=== PATIENT | male | born 1955 | race Caucasian/White ===

== ENCOUNTER 2022-09-09 11:33 | Inpatient (IN) ==
[2022-09-09] MEDS ORDERED: SODIUM CHLORIDE 0.9% 1000ML 1,000 ML IV ONE (11:44)
--- NOTE | 2022-09-09 11:47 | Emergency Department Note ---
Impression & Plan Bilateral pulmonary embolism, Pulmonary infarction ED Provider Note Name: KEITH SMITH Age: 67 Sex: M Arrives Via: Walk-In Informant: Patient, ED Provider: David Solorzano MD Chief Complaint: shortness of breath Impression: As per impressions above Medical Decision Making: Pleasant 67-year-old healthy male with a previous history of BPH and recent left rotator cuff surgery 2 weeks ago and has been in a shoulder immobilizer since then. Patient arrives with 24 hours rapidly worsening shortness of breath, right lower posterior chest pain and dyspnea. Significantly worse with exertion. On exam patient is mildly dyspneic with O2 sats in the low 90s. He was immediately ordered a CTA of his chest for PE eval. IV was established and given IV fluids in route to CT. BP GERD and not significantly tachycardic and only mildly low O2, thus no indication for empiric thrombolytics. CT does reveal extensive bilateral PEs with right lower lobe pulmonary infarct. There is no evidence of right heart strain. EKG looks similar to previous. Initial labs with normal troponin and otherwise unremarkable electrolytes. Patient without significant swelling of lower legs or calf thus will defer if need for ultrasound imaging to hospitalist. Patient without any headache or neck pain and denies any recent head injury. He has no abdominal pain epigastric pain or history of gastric ulcers or GI bleed. He denies any rectal bleeding. Discussed risks of heparin and benefits and they are comfortable with proceeding with IV heparin. He was given heparin with bolus and then drip following this. Given the fact patient has clear etiology of PEs with recent surgery I suspect this is a provoked PE and thus I do not feel that extensive hypercoagulable work-up is necessary. Of note patient has no history of PE DVT and previously has done extensive travel and flights without previously ever having issues with clotting. Prior Medical Record and Triage/Nursing Notes reviewed by Me External chart reviewed by me Differentials:PE, dissection, ACS, pneumonia, pneumothorax, sepsis amongst other pathologies considered Vital Signs: reviewed and remarkable for mildly low O2 sats heart rate in the 90s Interventions: 1 L normal saline IV, patient declines pain medications, heparin IV Labs:Reviewed and remarkable for no significant abnormalities Imaging:CT PE study of the chest as per my informal interpretation reveals multiple bilateral PEs with right lower lobe infarct. This was confirmed by radiologist EKG: As per myinterpretation. Indication shortness of breath. Normal sinus rhythm at 87 bpm and an incomplete right bundle branch block. When compared to an EKG of August 25, 2022 this is similar. He does have a QTc of 435. Cardiac/Tele Monitoring: Cardiac Monitoring: An Order was placed for continuous cardiac monitoring. The monitor shows a rate of [] with a [normal sinus] rhythm. Consults:Kena tyist Plan: Disposition:Hospitalization. Condition: Good History of Present Illness:67-year-old gentleman arrives for evaluation of right posterior chest and back pain. Patient notes 2 days rapidly worsening pain. Associated with shortness of breath and severe exertional dyspnea. Pain is worse with deep inspiration. He feels slightly lightheaded. Notes he is unable to walk without significant dyspnea this morning. No medications prior to arrival. Nothing makes better or worse. Patient notes that he had left shoulder surgery 1-1/2 weeks ago. He has been in a shoulder immobilizer since then. He was traveling about 1 month ago. Denies any leg swelling, calf pain, previous DVT/PE, family history of DVT or PE. Denies any syncope, abdominal pain, concerning signs or symptoms. Past History:BPH Home Medications:Tamsulosin Allergies:No known drug Vitals:Blood Pressure: 150/80, Pulse 97, RR 20, T 37.C, O2 94% on RA Physical Exam: GENERAL: Patient is very uncomfortable appearing and in moderate distress. Declines pain medications EYES: No scleral icterus, unremarkable pupils. ENT: Mucous membranes moist, no nasal congestion. RESPIRATORY: Appears dyspneic without significant tachypnea. Clear lung sounds throughout CARDIOVASCULAR: Regular rate and rhythm.No murmurs, rubs, gallops appreciated. GASTROINTESTINAL: Abdomen soft, non-tender, no peritonitis. BACK: No midline tenderness, no CVA tenderness EXTREMITIES: Normal motion right arm and bilateral legs. No edema noted. Left arm is in shoulder immobilizer good distal sensation no swelling of left hand. NEUROLOGIC: Alert and oriented, no focal neurologic deficit appreciated SKIN: No rash, no jaundice, no diaphoresis. PSYCH: Appropriate GCS: 15 ED Course: Times/Reassessments: Patient is breathing comfortably O2 sats in the low 90s but appears less dyspneic after laying in bed and not exerting self. Critical Care: I have personally spent 35 minutes of critical care time in the direct management of this patient. Acute bilateral symptomatic PEs with pulmonary infarct requiring IV heparin. This was a life/limb threatening event. This 35 minutes is in excess of all separately billable procedures. David Solorzano MD Past Med/Surg History Medical History (Updated 09/10/22 @ 08:30 by David Solorzano MD) Actinic keratosis Atypical small acinar proliferation of prostate Elevated PSA Surgical History (Updated 09/09/22 @ 13:30 by Shell Robles PA-C) H/O shoulder surgery S/P inguinal hernia repair S/P tonsillectomy Status post vasectomy Family History Other COPD (chronic obstructive pulmonary disease) Heart disease No significant family history Social History (Updated 09/09/22 @ 13:30 by Shell Robles PA-C) Smoking Status: Former smoker Hx Alcohol Use: Yes Alcohol type: beer and hard liquor Alcohol Intake Frequency: 4 or More x per/Week Alcohol Intake Frequency Comment: 2 drinks/night Hx Substance Use: No Preferred Language: [place] Insurance Premium Auditor Required: No Beliefs That Will Affect Care: None Current Living Situation: Spouse Other Information That Helps Us Care for You: No Feels Safe at Home: Yes Safety Concerns: Feels Safe At This Time Assistive Devices: Glasses and Other Allergies Allergies Allergy/AdvReac Type Severity Reaction Status Date / Time No Known Allergies Allergy Verified 09/09/22 14:01 Home Meds Home Medications Medication Instructions Recorded Confirmed acetaminophen 500 mg tablet 500 mg PO Q6H PRN Pain 09/09/22 09/09/22 glucosamine sulfate 750 mg tablet 750 mg PO BID 09/09/22 09/09/22 ibuprofen 200 mg tablet 200 mg PO Q6H PRN Pain 09/09/22 09/09/22 Previous Rx's Medication Instructions Recorded silodosin 8 mg capsule (Rapaflo) 8 mg PO DAILY #30 caps 04/26/22 Results & Data (ED) Vital Signs Vital Signs - 24 hr 09/09/22 11:36 09/09/22 11:49 09/09/22 12:02 Temperature 37.1 C Temperature Source Temporal Artery Scan Pulse Rate 97 H 86 Pulse Rate from SpO2 Sensor Respiratory Rate 20 Respiratory Effort / Characteristics Spontaneous Short of Breath Respiratory Depth Normal Blood Pressure 150/80 H Blood Pressure Mean 103 Pulse Oximetry 94 Oxygen Delivery Method Room Air Room Air Sepsis New/Unexplained Change in Mental Status N/A Sepsis Action Taken by Nursing No Action Required 09/09/22 12:02 09/09/22 12:10 09/09/22 12:24 Temperature Temperature Source Pulse Rate 86 84 87 Pulse Rate from SpO2 Sensor 87 84 86 Respiratory Rate 22 18 18 Respiratory Effort / Characteristics Respiratory Depth Blood Pressure Blood Pressure Mean Pulse Oximetry 96 92 93 Oxygen Delivery Method Room Air Room Air Room Air Sepsis New/Unexplained Change in Mental Status Sepsis Action Taken by Nursing 09/09/22 12:30 09/09/22 12:30 09/09/22 12:40 Temperature Temperature Source Pulse Rate 86 80 Pulse Rate from SpO2 Sensor 84 79 Respiratory Rate 22 26 H Respiratory Effort / Characteristics Respiratory Depth Blood Pressure 132/82 Blood Pressure Mean 98 Pulse Oximetry 92 Oxygen Delivery Method Room Air Room Air Room Air Sepsis New/Unexplained Change in Mental Status Sepsis Action Taken by Nursing 09/09/22 12:50 09/09/22 13:00 09/09/22 13:01 Temperature Temperature Source Pulse Rate 77 77 75 Pulse Rate from SpO2 Sensor 77 78 75 Respiratory Rate 24 21 23 Respiratory Effort / Characteristics Respiratory Depth Blood Pressure Blood Pressure Mean Pulse Oximetry 94 95 94 Oxygen Delivery Method Room Air Room Air Room Air Sepsis New/Unexplained Change in Mental Status Sepsis Action Taken by Nursing 09/09/22 13:01 09/09/22 13:10 09/09/22 13:20 Temperature Temperature Source Pulse Rate 76 80 Pulse Rate from SpO2 Sensor 76 80 Respiratory Rate 24 21 Respiratory Effort / Characteristics Respiratory Depth Blood Pressure 141/80 H Blood Pressure Mean 100 Pulse Oximetry 94 93 Oxygen Delivery Method Room Air Room Air Room Air Sepsis New/Unexplained Change in Mental Status Sepsis Action Taken by Nursing 09/09/22 13:30 09/09/22 13:30 Temperature Temperature Source Pulse Rate 85 Pulse Rate from SpO2 Sensor Respiratory Rate 21 Respiratory Effort / Characteristics Respiratory Depth Blood Pressure 132/92 Blood Pressure Mean 105 Pulse Oximetry Oxygen Delivery Method Room Air Room Air Sepsis New/Unexplained Change in Mental Status Sepsis Action Taken by Nursing Laboratory Data 09/10/22 03:32 09/10/22 03:32 Lab Results 09/09/22 09/09/22 09/09/22 Range/Units 12:00 12:00 12:00 WBC 10.46 (4.8-10.8) K/ul RBC 5.02 (4.70-6.10) M/uL Hgb 14.8 (14.0-18.0) g/dl Hct 43.6 (42.0-52.0) % MCV 86.9 (80.0-100.0) fL MCH 29.5 (25.0-34.0) pg MCHC 33.9 (32.0-36.0) g/dL RDW Std Deviation 44.9 (36.4-46.3) fL RDW Coeff of Kumar 14.2 (11.5-14.5) % Plt Count 299 (130-400) K/uL MPV 10.0 (9.4-12.4) fL Immature Gran % (Auto) 0.4 % Neut % (Auto) 77.1 % Lymph % (Auto) 8.7 % [place] % (Auto) 9.5 % Eos % (Auto) 3.9 % Baso % (Auto) 0.4 % Neut # (Auto) 8.07 H (1.40-6.50) K/uL Lymph # (Auto) 0.91 L (1.2-3.4) K/uL [place] # (Auto) 0.99 H (0.11-0.59) K/uL Eos # (Auto) 0.41 (0-0.50) K/uL Baso # (Auto) 0.04 (0-0.2) K/uL Immature Gran # (Auto) 0.04 (0.01-0.20) K/uL PT 10.9 (9.0-12.0) Seconds INR 1.0 (0.9-1.1) APTT (21.0-31.0) Seconds PTT Ratio Sodium 140 (136-145) mmol/L Potassium 4.3 (3.5-5.1) mmol/L Chloride 106 (98-107) mmol/L Carbon Dioxide 30 (21-32) mmol/L Anion Gap 4 (3-11) BUN 21 (6-23) mg/dl Creatinine 0.94 (0.6-1.4) mg/dl Est Cr Clr Drug Dosing 87.2 ml/min Est GFR ( Amer) 98.2 ml/min Est GFR (Non-Af Amer) 84.7 ml/min BUN/Creatinine Ratio 22.3 H (10-20) Glucose 87 (70-99(Fasting)) mg/dl Calcium 8.9 (8.6-10.3) mg/dl Magnesium 2.0 (1.7-2.4) mg/dl Total Bilirubin 0.5 (0.2-1.0) mg/dl Direct Bilirubin 0.1 (0-0.2) mg/dl AST 12 L (13-39) U/L ALT 13 (7-52) U/L Alkaline Phosphatase 70 (34-104) U/L Troponin I High Sens 6.6 (0-20) pg/ml Total Protein 7.0 (6.0-8.3) gm/dl Albumin 4.2 (3.4-5.0) gm/dl Lipase 19 (11-82) U/L 09/09/22 Range/Units 12:00 WBC (4.8-10.8) K/ul RBC (4.70-6.10) M/uL Hgb (14.0-18.0) g/dl Hct (42.0-52.0) % MCV (80.0-100.0) fL MCH (25.0-34.0) pg MCHC (32.0-36.0) g/dL RDW Std Deviation (36.4-46.3) fL RDW Coeff of Kumar (11.5-14.5) % Plt Count (130-400) K/uL MPV (9.4-12.4) fL Immature Gran % (Auto) % Neut % (Auto) % Lymph % (Auto) % [place] % (Auto) % Eos % (Auto) % Baso % (Auto) % Neut # (Auto) (1.40-6.50) K/uL Lymph # (Auto) (1.2-3.4) K/uL [place] # (Auto) (0.11-0.59) K/uL Eos # (Auto) (0-0.50) K/uL Baso # (Auto) (0-0.2) K/uL Immature Gran # (Auto) (0.01-0.20) K/uL PT (9.0-12.0) Seconds INR (0.9-1.1) APTT 29.8 (21.0-31.0) Seconds PTT Ratio 1.1 Sodium (136-145) mmol/L Potassium (3.5-5.1) mmol/L Chloride (98-107) mmol/L Carbon Dioxide (21-32) mmol/L Anion Gap (3-11) BUN (6-23) mg/dl Creatinine (0.6-1.4) mg/dl Est Cr Clr Drug Dosing ml/min Est GFR ( Amer) ml/min Est GFR (Non-Af Amer) ml/min BUN/Creatinine Ratio (10-20) Glucose (70-99(Fasting)) mg/dl Calcium (8.6-10.3) mg/dl Magnesium (1.7-2.4) mg/dl Total Bilirubin (0.2-1.0) mg/dl Direct Bilirubin (0-0.2) mg/dl AST (13-39) U/L ALT (7-52) U/L Alkaline Phosphatase (34-104) U/L Troponin I High Sens (0-20) pg/ml Total Protein (6.0-8.3) gm/dl Albumin (3.4-5.0) gm/dl Lipase (11-82) U/L Administered Medications Acetaminophen (Acetaminophen 325 Mg Tab) 650 mg PO Q4H PRN PRN Reason: Pain or Fever Stop: 10/09/22 14:56 Last Admin: 09/09/22 19:19 Dose: 650 mg Documented By: BRUNO Heparin Sodium/Dextrose (Heparin Sodium/Dextrose) 25,000 units in 500 mls @ 31 mls/hr IV .Q16H8M [facility]; Protocol Stop: 10/09/22 12:59 Last Admin: 09/10/22 04:58 Dose: 1,550 units/hr, 31 mls/hr Documented By: BRUNO Co-signed By: WILLY Titration: 09/10/22 04:58 Dose: 1,650 units/hr, 33 mls/hr Documented By: BRUNO Co-signed By: WILLY Titration: 09/09/22 20:50 Dose: 1,650 units/hr, 33 mls/hr Documented By: BRUNO Co-signed By: WILLY Admin: 09/09/22 13:21 Dose: 1,400 units/hr, 28 mls/hr Documented By: MILAN Co-signed By: KEVIN Miscellaneous (Silodosin [Rapaflo] 8 Mg Capsule ~ Order Awaiting Action) 1 each N/A QS [facility] Stop: 10/10/22 00:00 Last Admin: 09/10/22 07:29 Dose: Not Given Documented By: Admin: 09/10/22 01:14 Dose: Not Given Documented By: BRUNO Discontinued Medications Heparin Sodium (Porcine) (Heparin Sod (Porcine) 1000 Unit/Ml) 1 units IV NOW ONE Stop: 09/09/22 13:00 Last Admin: 09/09/22 13:19 Dose: Not Given Documented By: MILAN Heparin Sodium (Porcine) (Heparin Sod (Porcine) 1000 Unit/Ml) 5,000 units IV NOW ONE Stop: 09/09/22 13:16 Last Admin: 09/09/22 13:22 Dose: 5,000 units Documented By: MILAN Co-signed By: KEVIN Heparin Sodium/Dextrose (Heparin Iv Adult Wt-Based Standard With Bolus Protocol) 1 each IV NOW STA; Protocol Stop: 09/09/22 12:45 Last Admin: 09/09/22 13:18 Dose: Not Given Documented By: MILAN Sodium Chloride (Nss 1000ml) 1,000 mls @ 999 mls/hr IV .Q1H1M ONE Stop: 09/09/22 12:44 Last Infusion: 09/09/22 13:04 Dose: 0 mls/hr Documented By: Admin: 09/09/22 11:58 Dose: 999 mls/hr Documented By: MILAN Heparin Sodium (Porcine) 6,000 (units/ Syringe) 6 mls @ 10 mls/min IV NOW ONE Stop: 09/09/22 20:46 Last Admin: 09/09/22 21:13 Dose: 10 mls/min Documented By: BRUNO Co-signed By: WILLY Ioversol (Optiray 320 500ml) 106 ml IV ONCE ONE Stop: 09/09/22 12:23 Last Admin: 09/09/22 12:22 Dose: 106 ml Documented By: ADANK Discharge Plan Visit Data Chief Complaint: Shortness of Breath/Dyspnea Stated Complaint: SHORTNESS OF BREATH, BACK PAIN S/P SURGERY ED Provider: David Solorzano Discharge Problem: Bilateral pulmonary embolism, Pulmonary infarction Patient Disposition: Admitted As Inpatient Discharge Instructions Interventions: ED Discharge Assessment Last Done: 09/09/22 14:23
[2022-09-09] MEDS ORDERED: OPTIRAY 320 500ml IV ONE (12:22)
[2022-09-09 12:26] LABS: Basophils # (auto) 0.04 K/uL (0-0.2); Basophils % (auto) 0.4 %; Eosinophils # (auto) 0.41 K/uL (0-0.50); Eosinophils % (auto) 3.9 %; Hematocrit (blood only) 43.6 % (42.0-52.0); Hemoglobin 14.8 g/dl (14.0-18.0); Immature Granulocytes # (auto) 0.04 K/uL (0.01-0.20); Immature Granulocytes % (auto) 0.4 %; Lymphocytes # (auto) 0.91 K/uL (1.2-3.4); Lymphocytes % (auto) 8.7 %; Mean Corpuscular Hemoglobin 29.5 pg (25.0-34.0); Mean Corpuscular Hgb Conc 33.9 g/dL (32.0-36.0); Mean Corpuscular Volume 86.9 fL (80.0-100.0); Monocytes # (auto) 0.99 K/uL (0.11-0.59); Monocytes % (auto) 9.5 %; Neutrophils # (auto) 8.07 K/uL (1.40-6.50); Neutrophils % (auto) 77.1 %; Platelet Count 299 K/uL (130-400); RDW Coefficient of Variation 14.2 % (11.5-14.5); RDW Standard Deviation 44.9 fL (36.4-46.3); Red Blood Count 5.02 M/uL (4.70-6.10); White Blood Count 10.46 K/ul (4.8-10.8)
--- NOTE | 2022-09-09 12:31 | CT Scan Report ---
CHEST CTA for PULMONARY ARTERIES CT DOSE: 612.46 mGy.cm HISTORY: Shortness of breath. TECHNIQUE: Multiaxial CT images of the chest were performed following the intravenous administration of contrast to evaluate the pulmonary arteries. Maximal intensity projection images were also obtaine d. A dose lowering technique was utilized adhering to the principles of ALARA. COMPARISON STUDY: Abdomen and pelvis CT 05/10/2022. FINDINGS: Limited views the upper abdomen demonstrate a normal liver, spleen, and visualized adrenal glands. There is again noted a 1.5 cm exophytic hypodense lesion within the upper pole the left kidne y. This is similar to the prior CT examination. There is a trace right pleural effusion. No pericardi al effusion. Normal esophagus. The thyroid gland enhances normally. No mediastinal or hilar lymphaden opathy. There is a normal caliber thoracic aorta with no evidence for a dissection. There is no evide nce for right-sided heart strain. Multiple scattered bilateral segmental/subsegmental pulmonary embol i. There are also pulmonary emboli involving the right upper lobe are pulmonary artery. No acute frac tures identified. No pneumothorax. The central airways are patent. Small peripheral airspace opacitie s within the right lower lobe posteriorly which favor a pulmonary infarct. IMPRESSION: Extensive bilateral pulmonary emboli with an associated right lower lobe pulmonary infarct and a trac e right pleural effusion. However, no evidence for right-sided heart strain. ACT 112: Negative or not required by law. Electronically signed by: Jamal Nicole M.D. 09/09/2022 12:29 PM
[2022-09-09 12:44] LABS: Albumin Level 4.2 gm/dl (3.4-5.0); BUN Creatinine Ratio 22.3 (10-20); Bilirubin Direct 0.1 mg/dl (0-0.2); Bilirubin,Total 0.5 mg/dl (0.2-1.0); Calcium 8.9 mg/dl (8.6-10.3); Creatinine Clr Calc Pharmacy 87.2 ml/min; Est GFR (African American) 98.2 ml/min; Est GFR (Non-African American) 84.7 ml/min; Potassium 4.3 mmol/L (3.5-5.1)
[2022-09-09] MEDS ORDERED: Heparin IV Adult Wt-Based Standard WITH Bolus Protocol IV STA (12:44)
[2022-09-09 12:48] LABS: Troponin I High Sensitivity 6.6 pg/ml (0-20)
[2022-09-09 12:55] LABS: Prothrombin Time 10.9 Seconds (9.0-12.0)
[2022-09-09] MEDS ORDERED: HEPARIN SOD (PORCINE) 1000 UNIT/ML IV ONE ×3 (12:59→20:31)
[2022-09-09] MEDS: HEPARIN SODIUM/DEXTROSE 25,000 UNITS/500 ML BAG IV SCH (13:21)
[2022-09-09 13:28] LABS: Partial Thromboplastin Ratio 1.1; Partial Thromboplastin Time 29.8 Seconds (21.0-31.0)
--- NOTE | 2022-09-09 13:32 | History & Physical Report ---
Date of Service September 09, 2022 Assessment & Plan (1) Bilateral pulmonary embolism: (2) Dyspnea on exertion: (3) H/O shoulder surgery: (4) BPH w urinary obs/LUTS: Plan This is a 67-year-old male with PMH of BPH and recent shoulder surgery who presents with back pain and dyspnea on exertion and was found to have provoked bilateral PEs in setting of recent shoulder surgery. Bilateral pulmonary emboli Provoked; recent shoulder surgery 11 days ago Chest CTA with extensive bilateral pulmonary emboli with an associated right lower lobe pulmonary infarct and a trace right pleural effusion. However, no evidence for right-sided heart strain EKG with NSR, incomplete RBBB, no significant changes from previous HS troponin WNL, oxygen saturation 94% on room air 2d echo for better evaluation of heart strain Started on IV heparin with plan to transition to DOAC Observe on tele overnight H/o shoulder surgery Healing well, continue PRN Tylenol. Avoid nsaids while on anticoagulant BPH Continue silodosin H/o alcohol use Endorses 2 drinks nightly. No issues with withdrawal in the past DVT Ppx: IV heparin Code status: FULL PCP: Julio Dispo: Observation PCU Patient seen in collaboration with Dr. Em. Please see addendum. I spent a total of 60 minutes coordinating, documenting, and providing care for this patient excluding time spent in the performance of separately billed services. History of Present Illness Chief Complaint: SOB Primary Care Provider: Sudeep Kim DO This is a 67-year-old male with PMH of BPH and recent shoulder surgery who presents with back pain and dyspnea on exertion. History of shoulder surgery 11 days ago and has been recovering without issue. Earlier today, patient was helping his son load a wood tile molder into the car when he developed a pain in midback. Also noticed to be SOB with walking which is unusual for him. Came to ED for further evaluation. Denies any fever, chills, lightheadedness, chest pain, palpitations, wheezing, nausea, vomiting, abdominal pain, dysuria, diarrhea or constipation. No calf pain or swelling. No known history of clotting disorders in self or family. No history of blood clots in the past. Allergies Allergy/AdvReac Type Severity Reaction Status Date / Time No Known Allergies Allergy Verified 09/09/22 14:01 Home Medications Medication Instructions Recorded Confirmed Type silodosin 8 mg capsule (Rapaflo) 8 mg PO DAILY #30 caps 04/26/22 09/09/22 Rx acetaminophen 500 mg tablet 500 mg PO Q6H PRN Pain 09/09/22 09/09/22 History glucosamine sulfate 750 mg tablet 750 mg PO BID 09/09/22 09/09/22 History ibuprofen 200 mg tablet 200 mg PO Q6H PRN Pain 09/09/22 09/09/22 History Past Med/Surg History Medical History (Updated 09/09/22 @ 13:32 by Shell Robles PA-C) Actinic keratosis Atypical small acinar proliferation of prostate Elevated PSA Surgical History (Updated 09/09/22 @ 13:30 by Shell Robles PA-C) H/O shoulder surgery S/P inguinal hernia repair S/P tonsillectomy Status post vasectomy Family History Other COPD (chronic obstructive pulmonary disease) Heart disease No significant family history Social History (Updated 09/09/22 @ 13:30 by Shell Robles PA-C) Smoking Status: Former smoker Hx Alcohol Use: Yes Alcohol type: beer and hard liquor Alcohol Intake Frequency: 4 or More x per/Week Alcohol Intake Frequency Comment: 2 drinks/night Hx Substance Use: No Preferred Language: [place] Remedial Project Manager Required: No Beliefs That Will Affect Care: None Current Living Situation: Spouse Other Information That Helps Us Care for You: No Feels Safe at Home: Yes Safety Concerns: Feels Safe At This Time Assistive Devices: Glasses and Other Review of Systems Review of Systems: At least ten systems reviewed and negative except as noted in the HPI. Physical Exam Physical Exam: Please see Dr. Em's addendum for physical exam. Results & Data Results & Data Vital Signs (Past 12 Hours) Vital Signs Temp Pulse Resp BP Pulse Ox O2 Del Method 09/09/22 12:02 86 09/09/22 11:49 Room Air 09/09/22 11:36 37.1 C 97 H 20 150/80 H 94 Room Air Laboratory Results Short CBC 09/09/22 Range/Units 12:00 WBC 10.46 (4.8-10.8) K/ul Hgb 14.8 (14.0-18.0) g/dl Hct 43.6 (42.0-52.0) % Plt Count 299 (130-400) K/uL BMP 09/09/22 12:00 Sodium 140 Potassium 4.3 Chloride 106 Carbon Dioxide 30 BUN 21 Creatinine 0.94 Glucose 87 Calcium 8.9 Liver Function 09/09/22 Range/Units 12:00 Total Bilirubin 0.5 (0.2-1.0) mg/dl Direct Bilirubin 0.1 (0-0.2) mg/dl AST 12 L (13-39) U/L ALT 13 (7-52) U/L Alkaline Phosphatase 70 (34-104) U/L Albumin 4.2 (3.4-5.0) gm/dl Diagnostic Findings Chest CTA 09/09/22 11:44 CHEST CTA for PULMONARY ARTERIES CT DOSE: 612.46 mGy.cm HISTORY: Shortness of breath. TECHNIQUE: Multiaxial CT images of the chest were performed following the intravenous administration of contrast to evaluate the pulmonary arteries. Maximal intensity projection images were also obtained. A dose lowering technique was utilized adhering to the principles of ALARA. COMPARISON STUDY: Abdomen and pelvis CT 05/10/2022. FINDINGS: Limited views the upper abdomen demonstrate a normal liver, spleen, and visualized adrenal glands. There is again noted a 1.5 cm exophytic hypodense lesion within the upper pole the left kidney. This is similar to the prior CT examination. There is a trace right pleural effusion. No pericardial effusion. Normal esophagus. The thyroid gland enhances normally. No mediastinal or hilar lymphadenopathy. There is a normal caliber thoracic aorta with no evidence for a dissection. There is no evidence for right-sided heart strain. Multiple scattered bilateral segmental/subsegmental pulmonary emboli. There are also pulmonary emboli involving the right upper lobe are pulmonary artery. No acute fractures identified. No pneumothorax. The central airways are patent. Small peripheral airspace opacities within the right lower lobe posteriorly which favor a pulmonary infarct. IMPRESSION: Extensive bilateral pulmonary emboli with an associated right lower lobe pulmonary infarct and a trace right pleural effusion. However, no evidence for right-sided heart strain. ACT 112: Negative or not required by law. Electronically signed by: Jamal Nicole M.D. 09/09/2022 12:29 PM ECG Additional Comments: ECG reviewed- NSR, incomplete RBBB, no significant changes from previous Supervising Physician Co-Signing Physician Notes Pt is a 67 y/o M with hx of BPH, recent L shoulder surgery (2 weeks ago) admitted for new onset b/l PE. PE: NAD, well developed Cardiac: Normal S1/S2, no murmur Lungs: CTA, no wheezing or crackles Abd: ND, NT, soft MSK: L arm sling, no LE edema or LE erythema Pysch: AAOX3, normal affect A/P: Provoked PE: -VSS and no sign of DVT -no FHx of DVT/PE -no prior hx of DVT/PE or GI bleed -will start pt on heparin drip and discharged on DOAC - will obtain echo Agree with A/P by Shell Robles PA-C
[2022-09-09] MEDS ORDERED: POLYETHYLENE (MIRALAX) 17 GM PACK PO PRN (14:57)
[2022-09-09] MEDS ORDERED: ONDANSETRON INJ 2 MG/ML 2 ML VIAL IV PRN (14:57)
[2022-09-09] MEDS: ACETAMINOPHEN 325 MG TAB PO PRN (19:19)
[2022-09-09] MEDS ORDERED: HEPARIN IV BOLUS 6,000 UNITS in SYRINGE 0 ML IV ONE (20:45)
[2022-09-10 03:54] LABS: Hematocrit (blood only) 41.2 % (42.0-52.0); Hemoglobin 14.1 g/dl (14.0-18.0); Mean Corpuscular Hemoglobin 29.4 pg (25.0-34.0); Mean Corpuscular Hgb Conc 34.2 g/dL (32.0-36.0); Mean Corpuscular Volume 85.8 fL (80.0-100.0); Mean Platelet Volume 9.8 fL (9.4-12.4); Platelet Count 297 K/uL (130-400); RDW Standard Deviation 43.8 fL (36.4-46.3); White Blood Count 13.66 K/ul (4.8-10.8)
[2022-09-10 04:10] LABS: Calcium 8.6 mg/dl (8.6-10.3); Creatinine Clr Calc Pharmacy 92.1 ml/min; Est GFR (Non-African American) 89.7 ml/min; Potassium 3.9 mmol/L (3.5-5.1)
[2022-09-10 04:37] LABS: Partial Thromboplastin Ratio 2.6
[2022-09-10 04:54] LABS: Partial Thromboplastin Time 73.9 Seconds (21.0-31.0)
[2022-09-10] MEDS: HEPARIN SODIUM/DEXTROSE 25,000 UNITS/500 ML BAG IV SCH ×3 (04:58→20:45)
[2022-09-10] MEDS: THIAMINE HCL 100 MG TAB PO SCH (10:15)
[2022-09-10] MEDS: ACETAMINOPHEN 325 MG TAB PO PRN ×2 (10:15→15:19)
--- NOTE | 2022-09-10 10:24 | Electrocardiogram Report ---
Test Reason : Blood Pressure : / mmHG Vent. Rate : 087 BPM Atrial Rate : 087 BPM P-R Int : 172 ms QRS Dur : 112 ms QT Int : 362 ms P-R-T Axes : 052 -22 006 degrees QTc Int : 435 ms Normal sinus rhythm Incomplete right bundle branch block Borderline ECG When compared with ECG of 25-AUG-2022 13:21, No significant change was found Confirmed by Db Toussaint ([id number]) on 09/10/2022 10:23:23 AM Referred By: REFERRED SELF Confirmed By:Db Toussaint
[2022-09-10 12:06] LABS: Partial Thromboplastin Ratio 1.7
[2022-09-10 12:17] LABS: Partial Thromboplastin Time 46.7 Seconds (21.0-31.0)
--- NOTE | 2022-09-10 15:03 | Hospitalist Progress Note ---
Date of Service September 10, 2022 Assessment & Plan (1) Bilateral pulmonary embolism: (2) Dyspnea on exertion: (3) H/O shoulder surgery: (4) BPH w urinary obs/LUTS: Plan Patient is a 67 yr old male with PMH of BPH and recent shoulder surgery who presents with back pain and dyspnea on exertion and was found to have provoked bilateral PEs in setting of recent shoulder surgery. Bilateral pulmonary emboli Provoked; recent shoulder surgery 11 days ago --Chest CTA with extensive bilateral pulmonary emboli with an associated right lower lobe pulmonary infarct and a trace right pleural effusion. However, no evidence for right-sided heart strain --ECHO: Left ventricle is normal in size. Borderline concentric LVH. Left ventricle systolic function is normal. EF 55 to 60% and mild septal dyssynergy with otherwise normal wall motion. Right ventricle is normal in size and func tion. No significant valvular disease. Grade 1 diastolic dysfunction. There is borderline dilatation of the IVC however normal respiratory variation is present. Right ventricle systolic pressure is elevated at 30 to 40 mmHg. --Normal troponin Saturating low 90s on room air Continue IV heparin Plan to transition to Eliquis likely tomorrow H/o shoulder surgery continue PRN Tylenol. Avoid nsaids while on anticoagulant BPH Continue silodosin H/o alcohol use Endorses 2 drinks nightly. Continue thiamine, folic acid Monitor for withdrawal DVT Px: IV heparin Code status: FULL CODE Admission and Anticipated Discharge Date Admission Date: September 10, 2022 Subjective Patient is seen and examined at bedside States having pleuritic pain occasionally Denies any dyspnea, dizziness, nausea, abdominal pain Saturating low 90s on room air No bleeding issues Currently on IV heparin Review of Systems Review of Systems: All systems reviewed & are unremarkable except as noted in Subjective Physical Exam Physical Exam: Physical Exam: Vitals signs as noted above General Appearance:Moderately built and nourished, no apparent distress Head: normocephalic, Atraumatic Eyes: normal inspection, EOMI Neck: supple, Trachea midline Respiratory/Chest: Normal breath sounds, CTA, No accessory muscle use Cardiovascular: S1, S2, No murmur Abdomen/GI:Soft, Non tender, Bowel sounds present Extremities/Musculoskeletal:normal inspection, no edema Neurologic/Psych:AAOX3, grossly no focal neurological deficits Skin: normal color, warm Results & Data Results & Data Vital Signs (Past 12 Hours) Vital Signs Temp Pulse Pulse Resp BP Pulse Ox O2 Del Method 09/10/22 11:53 36.8 C 88 18 122/74 93 Room Air 09/10/22 08:00 Room Air 09/10/22 08:07 37.3 C 88 18 120/79 90 Room Air 09/10/22 07:20 85 09/10/22 03:30 37.0 C 91 H 20 125/77 92 Room Air Laboratory Results Short CBC 09/10/22 Range/Units 03:32 WBC 13.66 H (4.8-10.8) K/ul Hgb 14.1 (14.0-18.0) g/dl Hct 41.2 L (42.0-52.0) % Plt Count 297 (130-400) K/uL BMP 09/10/22 03:32 Sodium 136 Potassium 3.9 Chloride 104 Carbon Dioxide 25 BUN 16 Creatinine 0.89 Glucose 111 H Calcium 8.6
[2022-09-10] MEDS: SILODOSIN 8 MG PO SCH (16:39)
[2022-09-11] MEDS: ACETAMINOPHEN 325 MG TAB PO PRN ×2 (03:27→11:06)
[2022-09-11 07:01] LABS: Hematocrit (blood only) 41.7 % (42.0-52.0); Hemoglobin 14.3 g/dl (14.0-18.0); Mean Corpuscular Hemoglobin 29.7 pg (25.0-34.0); Mean Corpuscular Hgb Conc 34.3 g/dL (32.0-36.0); Mean Corpuscular Volume 86.5 fL (80.0-100.0); Mean Platelet Volume 10.3 fL (9.4-12.4); Platelet Count 301 K/uL (130-400); RDW Coefficient of Variation 14.1 % (11.5-14.5); RDW Standard Deviation 44.8 fL (36.4-46.3); Red Blood Count 4.82 M/uL (4.70-6.10); White Blood Count 13.12 K/ul (4.8-10.8)
[2022-09-11 07:17] LABS: BUN Creatinine Ratio 16.5 (10-20); Calcium 8.6 mg/dl (8.6-10.3); Creatinine Clr Calc Pharmacy 86.6 ml/min; Est GFR (Non-African American) 91.4 ml/min; Potassium 3.9 mmol/L (3.5-5.1)
[2022-09-11] MEDS: SILODOSIN 8 MG PO SCH (07:37)
[2022-09-11] MEDS: THIAMINE HCL 100 MG TAB PO SCH (07:38)
[2022-09-11 07:42] LABS: Partial Thromboplastin Ratio 1.5
[2022-09-11 07:46] LABS: Partial Thromboplastin Time 42.7 Seconds (21.0-31.0)
[2022-09-11] MEDS ORDERED: APIXABAN 5 MG TABLET PO SCH (10:15)
[2022-09-11] MEDS ORDERED: HEPARIN STOP ORDER ONE (10:15)
--- NOTE | 2022-09-11 11:58 | Hospitalist Progress Note ---
Date of Service September 11, 2022 Assessment & Plan (1) Bilateral pulmonary embolism: (2) Dyspnea on exertion: (3) H/O shoulder surgery: (4) BPH w urinary obs/LUTS: Plan Patient is a 67 yr old male with PMH of BPH and recent shoulder surgery who presents with back pain and dyspnea on exertion and was found to have provoked bilateral PEs in setting of recent shoulder surgery. Bilateral pulmonary emboli Provoked; recent shoulder surgery 11 days ago --Chest CTA with extensive bilateral pulmonary emboli with an associated right lower lobe pulmonary infarct and a trace right pleural effusion. However, no evidence for right-sided heart strain --ECHO: Left ventricle is normal in size. Borderline concentric LVH. Left ventricle systolic function is normal. EF 55 to 60% and mild septal dyssynergy with otherwise normal wall motion. Right ventricle is normal in size and func tion. No significant valvular disease. Grade 1 diastolic dysfunction. There is borderline dilatation of the IVC however normal respiratory variation is present. Right ventricle systolic pressure is elevated at 30 to 40 mmHg. --Normal troponin Saturating well on room air Continue IV heparin transition to Eliquis Advised to get hypercoagulable work-up as outpatient and follow-up with PCP H/o shoulder surgery continue PRN Tylenol. Avoid nsaids while on anticoagulant BPH Continue silodosin H/o alcohol use Endorses 2 drinks nightly. Continue thiamine, folic acid Monitor for withdrawal DVT Px: Eliquis Code status: FULL CODE Admission and Anticipated Discharge Date Admission Date: September 10, 2022 Subjective Patient is seen and examined at bedside No bleeding issues while on IV heparin No new complaints Minimal pleuritic pain with deep inspiration Denies any dyspnea, dizziness, nausea, abdominal pain Saturating well on room air Plan to be discharged home today Review of Systems Review of Systems: All systems reviewed & are unremarkable except as noted in Subjective Physical Exam Physical Exam: Physical Exam: Vitals signs as noted above General Appearance:Moderately built and nourished, no apparent distress Head: normocephalic, Atraumatic Eyes: normal inspection, EOMI Neck: supple, Trachea midline Respiratory/Chest: Normal breath sounds, CTA, No accessory muscle use Cardiovascular: S1, S2, No murmur Abdomen/GI:Soft, Non tender, Bowel sounds present Extremities/Musculoskeletal:normal inspection, no edema Neurologic/Psych:AAOX3, grossly no focal neurological deficits Skin: normal color, warm Results & Data Results & Data Vital Signs (Past 12 Hours) Vital Signs Temp Pulse Pulse Resp BP Pulse Ox O2 Del Method 09/11/22 11:04 82 139/79 97 Room Air 09/11/22 08:00 93 H 09/11/22 07:43 36.4 C L 81 18 116/67 93 Room Air 09/11/22 03:23 37.2 C 86 18 126/83 92 Room Air Laboratory Results Short CBC 09/11/22 Range/Units 06:02 WBC 13.12 H (4.8-10.8) K/ul Hgb 14.3 (14.0-18.0) g/dl Hct 41.7 L (42.0-52.0) % Plt Count 301 (130-400) K/uL BMP 09/11/22 06:02 Sodium 138 Potassium 3.9 Chloride 105 Carbon Dioxide 27 BUN 14 Creatinine 0.85 Glucose 99 Calcium 8.6
--- NOTE | 2022-09-11 12:06 | Discharge Summary ---
Date of Service September 11, 2022 Admission HPI Per Admitting Provider This is a 67-year-old male with PMH of BPH and recent shoulder surgery who presents with back pain and dyspnea on exertion. History of shoulder surgery 11 days ago and has been recovering without issue. Earlier today, patient was helping his son load a wood field mechanical meter tester into the car when he developed a pain in midback. Also noticed to be SOB with walking which is unusual for him. Came to ED for further evaluation. Denies any fever, chills, lightheadedness, chest pain, palpitations, wheezing, nausea, vomiting, abdominal pain, dysuria, diarrhea or constipation. No calf pain or swelling. No known history of clotting disorders in self or family. No history of blood clots in the past. Admission Exam Per Admitting Provider PE: NAD, well developed Cardiac: Normal S1/S2, no murmur Lungs: CTA, no wheezing or crackles Abd: ND, NT, soft MSK: L arm sling, no LE edema or LE erythema Pysch: AAOX3, normal affect Principal Diagnosis Acute Bilateral pulmonary embolism Right lower lobe pulmonary infarct Discharge Data Allergies Allergy/AdvReac Type Severity Reaction Status Date / Time No Known Allergies Allergy Verified 09/09/22 14:01 Consultations 09/09/22 12:44 ED Decision to Admit Stat Procedures Performed Laboratory Results WBC 13.12 K/ul (4.8-10.8) H 09/11/22 06:02 RBC 4.82 M/uL (4.70-6.10) 09/11/22 06:02 Hgb 14.3 g/dl (14.0-18.0) 09/11/22 06:02 Hct 41.7 % (42.0-52.0) L 09/11/22 06:02 MCV 86.5 fL (80.0-100.0) 09/11/22 06:02 MCH 29.7 pg (25.0-34.0) 09/11/22 06:02 MCHC 34.3 g/dL (32.0-36.0) 09/11/22 06:02 RDW Std Deviation 44.8 fL (36.4-46.3) 09/11/22 06:02 RDW Coeff of Kumar 14.1 % (11.5-14.5) 09/11/22 06:02 Plt Count 301 K/uL (130-400) 09/11/22 06:02 MPV 10.3 fL (9.4-12.4) 09/11/22 06:02 Immature Gran % (Auto) 0.4 % 09/09/22 12:00 Neut % (Auto) 77.1 % 09/09/22 12:00 Lymph % (Auto) 8.7 % 09/09/22 12:00 Miner % (Auto) 9.5 % 09/09/22 12:00 Eos % (Auto) 3.9 % 09/09/22 12:00 Baso % (Auto) 0.4 % 09/09/22 12:00 Neut # (Auto) 8.07 K/uL (1.40-6.50) H 09/09/22 12:00 Lymph # (Auto) 0.91 K/uL (1.2-3.4) L 09/09/22 12:00 Miner # (Auto) 0.99 K/uL (0.11-0.59) H 09/09/22 12:00 Eos # (Auto) 0.41 K/uL (0-0.50) 09/09/22 12:00 Baso # (Auto) 0.04 K/uL (0-0.2) 09/09/22 12:00 Immature Gran # (Auto) 0.04 K/uL (0.01-0.20) 09/09/22 12:00 PT 10.9 Seconds (9.0-12.0) 09/09/22 12:00 INR 1.0 (0.9-1.1) 09/09/22 12:00 APTT 42.7 Seconds (21.0-31.0) H* 09/11/22 06:02 PTT Ratio 1.5 09/11/22 06:02 Sodium 138 mmol/L (136-145) 09/11/22 06:02 Potassium 3.9 mmol/L (3.5-5.1) 09/11/22 06:02 Chloride 105 mmol/L (98-107) 09/11/22 06:02 Carbon Dioxide 27 mmol/L (21-32) 09/11/22 06:02 Anion Gap 6 (3-11) 09/11/22 06:02 BUN 14 mg/dl (6-23) 09/11/22 06:02 Creatinine 0.85 mg/dl (0.6-1.4) 09/11/22 06:02 Est Cr Clr Drug Dosing 86.6 ml/min 09/11/22 06:02 Est GFR ( Amer) 106.0 ml/min 09/11/22 06:02 Est GFR (Non-Af Amer) 91.4 ml/min 09/11/22 06:02 BUN/Creatinine Ratio 16.5 (10-20) 09/11/22 06:02 Glucose 99 mg/dl (70-99(Fasting)) 09/11/22 06:02 Calcium 8.6 mg/dl (8.6-10.3) 09/11/22 06:02 Magnesium 2.0 mg/dl (1.7-2.4) 09/11/22 06:02 Total Bilirubin 0.5 mg/dl (0.2-1.0) 09/09/22 12:00 Direct Bilirubin 0.1 mg/dl (0-0.2) 09/09/22 12:00 AST 12 U/L (13-39) L 09/09/22 12:00 ALT 13 U/L (7-52) 09/09/22 12:00 Alkaline Phosphatase 70 U/L (34-104) 09/09/22 12:00 Troponin I High Sens 6.6 pg/ml (0-20) 09/09/22 12:00 Total Protein 7.0 gm/dl (6.0-8.3) 09/09/22 12:00 Albumin 4.2 gm/dl (3.4-5.0) 09/09/22 12:00 Lipase 19 U/L (11-82) 09/09/22 12:00 SARS-CoV-2, RNA, NAAT NEGATIVE (NEGATIVE) 09/09/22 13:39 Impressions Chest CTA 09/09/22 11:44 CHEST CTA for PULMONARY ARTERIES CT DOSE: 612.46 mGy.cm HISTORY: Shortness of breath. TECHNIQUE: Multiaxial CT images of the chest were performed following the intravenous administration of contrast to evaluate the pulmonary arteries. Maximal intensity projection images were also obtained. A dose lowering technique was utilized adhering to the principles of ALARA. COMPARISON STUDY: Abdomen and pelvis CT 05/10/2022. FINDINGS: Limited views the upper abdomen demonstrate a normal liver, spleen, and visualized adrenal glands. There is again noted a 1.5 cm exophytic hypodense lesion within the upper pole the left kidney. This is similar to the prior CT examination. There is a trace right pleural effusion. No pericardial effusion. Normal esophagus. The thyroid gland enhances normally. No mediastinal or hilar lymphadenopathy. There is a normal caliber thoracic aorta with no evidence for a dissection. There is no evidence for right-sided heart strain. Multiple scattered bilateral segmental/subsegmental pulmonary emboli. There are also pulmonary emboli involving the right upper lobe are pulmonary artery. No acute fractures identified. No pneumothorax. The central airways are patent. Small peripheral airspace opacities within the right lower lobe posteriorly which favor a pulmonary infarct. IMPRESSION: Extensive bilateral pulmonary emboli with an associated right lower lobe pulmonary infarct and a trace right pleural effusion. However, no evidence for right-sided heart strain. ACT 112: Negative or not required by law. Electronically signed by: Jamal Nicole M.D. 09/09/2022 12:29 PM Ordered Studies 09/09/22 11:44 CT angio chest PE protocol Stat Hospital Course (1) Bilateral pulmonary embolism: (2) Dyspnea on exertion: (3) H/O shoulder surgery: (4) BPH w urinary obs/LUTS: Plan Patient is a 67 yr old male with PMH of BPH and recent shoulder surgery who presents with back pain and dyspnea on exertion and was found to have provoked bilateral PEs in setting of recent shoulder surgery. Bilateral pulmonary emboli Provoked; recent shoulder surgery 11 days ago --Chest CTA with extensive bilateral pulmonary emboli with an associated right lower lobe pulmonary infarct and a trace right pleural effusion. However, no evidence for right-sided heart strain --ECHO: Left ventricle is normal in size. Borderline concentric LVH. Left ventricle systolic function is normal. EF 55 to 60% and mild septal dyssynergy with otherwise normal wall motion. Right ventricle is normal in size and function. No significant valvular disease. Grade 1 diastolic dysfunction. There is borderline dilatation of the IVC however normal respiratory variation is present. Right ventricle systolic pressure is elevated at 30 to 40 mmHg. --Normal troponin Saturating well on room air Continue IV heparin transition to Eliquis Advised to get hypercoagulable work-up as outpatient and follow-up with PCP H/o shoulder surgery continue PRN Tylenol. Avoid nsaids while on anticoagulant BPH Continue silodosin H/o alcohol use Endorses 2 drinks nightly. Continue thiamine, folic acid Monitor for withdrawal DVT Px: Eliquis Code status: FULL CODE Total Time Total Time Spent Total Time Spent (In Minutes): 56 minutes Discharge Plan Discharge Items Patient Disposition: Home - Self-Care Reason For Visit: SHORTNESS OF BREATH, BACK PAIN S/P SURGERY Discharge Diagnosis: Acute Bilateral pulmonary embolism Right lower lobe pulmonary infarct Activity: Per Instructions section Exercise/Sports: Wait until after follow-up appointment Non-emergency contact: Primary Care Provider Call non-emergency contact if: you have any medication questions, your symptoms worsen, your pain is concerning for you and you have a fever Follow-up/Referrals: Sudeep Kim, [Primary Care Provider] - (Date & Time 09/14/2022 9:40 AM Provider [facility] ) Diet: Regular Addtl Attending Provider Instructions: -- Follow-up with your primary care physician Dr. Sudeep Kim on 09/14/2022 9:40 AM -- Blood cultures are pending at the time of discharge. Follow-up with your physician for results. --Get blood work(hypercoagulable work-up) to identify risk factors for clotting as advised. Consider seeing a white work cleaner if needed. --Start taking apixaban (Eliquis) 10 mg two times a day for 1 week and then take 5 mg two times a day as advised. Avoid taking group of medications belonging to NSAIDs group -can cause your risk for bleeding while on apixaban. List Of these medications includes but not limited to: Aspirin Diclofenac Ibuprofen, Motrin, Advil Toradol,ketorolac Naproxen, Aleve, Naprosyn You can take Tylenol as needed for pain or fever When buying [id number] pain medications please consult with pharmacy if you are not sure regarding ingredients, as a lot of the pain medications have combination of NSAIDs and Tylenol. Seek immediate medical attention if your symptoms reoccur or worsen Please take all medications as instructed on discharge list below. Please call if you have any questions or problems. You can reach a [facility] hospitalist on duty at [facility] 24 hours a day by calling [phone] Pending Studies at Discharge: Yes Stand-Alone Forms: My [facility], Smoking Cessation Medications and DC Order Prescriptions: New Eliquis 5 mg (74 tabs) tablets,dose pack 5 mg PO UD Qty: 74 1RF Rx Instructions: Start taking Apixaban 10mg twice a day for 7 days, then take 5mg twice a day. Continued silodosin [Rapaflo] 8 mg capsule 8 mg PO DAILY Qty: 30 11RF Rx Instructions: must administer with a meal/food acetaminophen [Tylenol Ex Str Arthritis Pain] 500 mg Tablet 500 mg PO Q6H PRN (Reason: Pain) glucosamine sulfate [Glucosamine] 750 mg Tablet 750 mg PO BID Rx Instructions: administer with meals Discontinued ibuprofen 200 mg Tablet 200 mg PO Q6H PRN (Reason: Pain) Discharge Orders: Discharge Order (Routine); Ordered 09/11/22 Ordered By: Prashant Morales Admission Data Admit Date/Time: 09/10/22 08:31 Attending Provider: Prashant Morales Admit Provider: Denise Em Primary Care Provider: Sudeep Kim Other Providers: Denise Em
== END 2022-09-11 12:32 | disposition home or self-care (01) | DRG 176 ==
LOC: ED 11:33 → 2E 11:33 → SUATTDRO 13:36 → 2E 14:23